=== PATIENT | male | born 1950 | race Asian ===

== ENCOUNTER 2018-12-25 06:24 | Day surgery (SDC) | payer MEDICARE, OTHER ==
[~2018-12-25] VITALS: Ht 165.1 cm; Wt 77.3 kg
[~2018-12-25 06:24] MED LIST: SODIUM CHLORIDE 0.9% 1,000 ML IV ONE
[2018-12-25] MEDS ORDERED: LIDOCAINE 2% 30 ML JELLY TP ONE (06:25)
[2018-12-25] MEDS ORDERED: LIDOCAINE 4% 50 ML SOLUTION TP ONE (06:25)
[2018-12-25] MEDS ORDERED: ALBUTEROL SULFATE 2.5 MG/0.5 ML NEB SOLUTION NEB ONE (06:25)
[2018-12-25] MEDS ORDERED: BENZOCAINE 20% 50 MCG/SPRAY 57 GM TP ONE (06:25)
[2018-12-25] MEDS ORDERED: SODIUM CHLORIDE 0.9% 1,000 ML IV ONE (06:30)
[2018-12-25] MEDS ORDERED: SIMV-261 PO (06:46)
[2018-12-25] MEDS ORDERED: OS500 PO ×2 (06:46→06:52)
[2018-12-25] MEDS ORDERED: LOSA1TAB42 PO (06:52)
[2018-12-25] MEDS ORDERED: ASPI-1182 PO (06:52)
[2018-12-25] MEDS ORDERED: METO50 PO (06:52)
[2018-12-25] MEDS ORDERED: RANI150T7 PO (06:52)
[2018-12-25] MEDS ORDERED: PSEU60TA21 PO (06:52)
[2018-12-25] MEDS ORDERED: HYDR25TA84 PO (06:52)
[2018-12-25] MEDS ORDERED: DUTA.5 PO (06:52)
[2018-12-25] MEDS ORDERED: TAMS-1 PO (06:52)
[2018-12-25] MEDS ORDERED: MIDAZOLAM HCL 2 MG/2 ML VIAL ONE (08:12)
[2018-12-25] MEDS ORDERED: FentaNYL CITRATE-PF 100 MCG/2 ML VIAL ONE (08:12)
[2018-12-25] MEDS ORDERED: MethylPREDNISolone SOD SUCC 125 MG/2 ML VIAL IVP ONE (09:30)
[2018-12-25] MEDS ORDERED: MethylPREDNISolone SOD SUCC 125 MG/2 ML VIAL ONE (09:34)
[2018-12-25] MEDS ORDERED: OXYGEN THERAPY IH SCH (20:00)
== END 2018-12-25 11:15 | disposition home or self-care (01) ==
LOC: SURGERY 06:24
PROVIDERS: ATTEND Internal Medicine Critical Care Medicine
DX: J38.4 Edema of larynx (principal); B37.0 Candidal stomatitis; J45.909 Unspecified asthma, uncomplicated; J84.10 Pulmonary fibrosis, unspecified; F10.21 Alcohol dependence, in remission; E78.00 Pure hypercholesterolemia, unspecified; Z79.899 Other long term (current) drug therapy; Z98.890 Other specified postprocedural states; Z86.11 Personal history of tuberculosis; Z87.891 Personal history of nicotine dependence
CPT/HCPCS: 31623; 31624; 71045; 87015; 87070; 87101; 87205; 87206; 87220; J2250; J2930; J3010; J7030

== ENCOUNTER → 2021-05-06 | Day surgery (SDC) | payer MEDICARE, OTHER ==
[~2021-05-06] VITALS: Ht 167.6 cm; Wt 84.1 kg
[~2021-05-06] MED LIST changes: +ALBUTEROL SULFATE 2.5 MG/0.5 ML NEB SOLUTION NEB ONE; +ASPI-1444 PO; +BENZOCAINE 20% 50 MCG/SPRAY 57 GM TP ONE; +DUTA.5 PO; +FentaNYL CITRATE PF 100 MCG/2 ML VIAL ONE; +HYDR25TA84 PO; +LIDOCAINE 2% 5 ML JELLY TP ONE; +LOSA1TAB42 PO; +METO50 PO; +MIDAZOLAM HCL 5 MG/ML VIAL ONE; +MethylPREDNISolone SOD SUCC 125 MG/2 ML VIAL IVP ONE; +MethylPREDNISolone SOD SUCC 125 MG/2 ML VIAL ONE; +OS500 PO; +OXYGEN THERAPY IH SCH; +PSEU-224 PO; +RANI150T7 PO; +SIMV-261 PO; +SODIUM CHLORIDE 0.9% 0 ML ONE; +TAMS-1 PO
[2021-05-06 06:46] LABS: COVID AG,FIA SOURCE NASOPHARYNGEAL
== END | disposition home or self-care (01) ==
LOC: SURGERY 06:07
PROVIDERS: ATTEND Internal Medicine Critical Care Medicine
DX: J38.4 Edema of larynx (principal); B37.0 Candidal stomatitis; E78.00 Pure hypercholesterolemia, unspecified; I10 Essential (primary) hypertension; Z79.899 Other long term (current) drug therapy; Z87.891 Personal history of nicotine dependence; Z87.01 Personal history of pneumonia (recurrent); Z98.890 Other specified postprocedural states; Z72.89 Other problems related to lifestyle; Z86.11 Personal history of tuberculosis
CPT/HCPCS: 31623; 31624; 71045; 87015; 87070; 87077; 87101; 87186; 87205; 87206; 87220; 87426; 88108; 88184; 88185; 88312; C9803; J2250; J2930; J3010; J7030; J7613

== ENCOUNTER 2022-04-02 05:46 | Day surgery (SDC) | payer MEDICARE, OTHER ==
[~2022-04-02] VITALS: Ht 162.6 cm; Wt 82.7 kg
[~2022-04-02 05:46] MED LIST changes: -ALBUTEROL SULFATE 2.5 MG/0.5 ML NEB SOLUTION NEB ONE; -BENZOCAINE 20% 50 MCG/SPRAY 57 GM TP ONE; -FentaNYL CITRATE PF 100 MCG/2 ML VIAL ONE; -LIDOCAINE 2% 5 ML JELLY TP ONE; -MIDAZOLAM HCL 5 MG/ML VIAL ONE; -MethylPREDNISolone SOD SUCC 125 MG/2 ML VIAL IVP ONE; -MethylPREDNISolone SOD SUCC 125 MG/2 ML VIAL ONE; -OXYGEN THERAPY IH SCH; -SODIUM CHLORIDE 0.9% 0 ML ONE
[2022-04-02] MEDS ORDERED: ALBUTEROL SULFATE 2.5 MG/0.5 ML NEB SOLUTION NEB ONE (05:47)
[2022-04-02] MEDS ORDERED: BENZOCAINE 20% 50 MCG/SPRAY 57 GM TP ONE (05:47)
[2022-04-02] MEDS ORDERED: LIDOCAINE 4% 50 ML SOLUTION TP ONE (05:47)
[2022-04-02] MEDS ORDERED: LIDOCAINE 2% 11 ML JELLY TP ONE (05:47)
[2022-04-02 06:44] LABS: COVID AG,FIA SOURCE NASAL SWAB
[2022-04-02] MEDS ORDERED: SODIUM CHLORIDE 0.9% 1,000 ML ONE (07:00)
[2022-04-02] MEDS ORDERED: MIDAZOLAM HCL 5 MG/ML VIAL ONE (07:59)
[2022-04-02] MEDS ORDERED: FentaNYL CITRATE PF 100 MCG/2 ML VIAL ONE (07:59)
[2022-04-02] MEDS ORDERED: MethylPREDNISolone SOD SUCC 125 MG/2 ML VIAL IVP ONE (09:15)
[2022-04-02] MEDS ORDERED: MethylPREDNISolone SOD SUCC 125 MG/2 ML VIAL ONE (09:31)
[2022-04-02] MEDS ORDERED: OXYGEN THERAPY IH SCH (20:00)
== END 2022-04-02 11:15 | disposition home or self-care (01) ==
LOC: SURGERY 05:46
PROVIDERS: ATTEND Internal Medicine Critical Care Medicine
DX: J38.4 Edema of larynx (principal); B37.0 Candidal stomatitis; I10 Essential (primary) hypertension; E78.00 Pure hypercholesterolemia, unspecified; J45.909 Unspecified asthma, uncomplicated; Z20.822 Contact with and (suspected) exposure to COVID-19; Z87.01 Personal history of pneumonia (recurrent); Z79.82 Long term (current) use of aspirin; Z98.890 Other specified postprocedural states
CPT/HCPCS: 31623; 87101; 87220; 87070; 87186; 31624; 94640; 71045; 87015; 87206; 87426; J3010; J2930; J2250; Q9967; J7030; C9803; J7613; Z7610

== ENCOUNTER 2023-12-07 06:56 | Day surgery (SDC) | payer OTHER ==
[~2023-12-07] VITALS: Ht 170.2 cm; Wt 70.5 kg
[~2023-12-07 06:56] MED LIST changes: +ALBU18HF12 IH; +ALEN70TA80 PO; +ATOR40TA71 PO; +CELE-125 PO; +CETI10TA58 PO; +CHOL500013 PO; -DUTA.5 PO; +FLUT16SP NASAL; +FLUT1BLS15 IH; +GABA-1181 PO; +HYDR10TA31 PO; -HYDR25TA84 PO; +LOSA-382 PO; -LOSA1TAB42 PO; +METO25 PO; -METO50 PO; +MONT-40 PO; +PROP10DR4 OU; -PSEU-224 PO; -RANI150T7 PO; +SENN-277 PO; -SIMV-261 PO; -SODIUM CHLORIDE 0.9% 1,000 ML IV ONE; +SODIUM CHLORIDE 0.9% 1,000 ML ONE
[2023-12-07] MEDS ORDERED: LIDOCAINE 2% 11 ML JELLY TP ONE (06:57)
[2023-12-07] MEDS ORDERED: ALBUTEROL SULFATE 2.5 MG/0.5 ML NEB SOLUTION NEB ONE (06:57)
[2023-12-07] MEDS ORDERED: LIDOCAINE 4% 50 ML SOLUTION TP ONE (06:57)
[2023-12-07] MEDS ORDERED: BENZOCAINE 20% 50 MCG/SPRAY 57 GM TP ONE (06:57)
[2023-12-07] MEDS ORDERED: MIDAZOLAM HCL 2 MG/2 ML VIAL ONE (07:51)
[2023-12-07] MEDS ORDERED: FentaNYL CITRATE PF 100 MCG/2 ML VIAL ONE (07:52)
[2023-12-07] MEDS: SODIUM CHLORIDE 0.9% 1,000 ML IV ONE (08:19)
[2023-12-07] MEDS ORDERED: MethylPREDNISolone SOD SUCC 125 MG/2 ML VIAL ONE (10:21)
[2023-12-07] MEDS: MethylPREDNISolone SOD SUCC 125 MG/2 ML VIAL IVP ONE (10:23)
== END 2023-12-07 13:10 | disposition home or self-care (01) ==
LOC: SURGERY 06:56
PROVIDERS: ATTEND Internal Medicine Critical Care Medicine
DX: R05.3 Chronic cough (principal); J38.4 Edema of larynx; B37.0 Candidal stomatitis; J84.10 Pulmonary fibrosis, unspecified; J98.8 Other specified respiratory disorders; J98.09 Other diseases of bronchus, not elsewhere classified; R91.8 Other nonspecific abnormal finding of lung field; I11.9 Hypertensive heart disease without heart failure; J45.909 Unspecified asthma, uncomplicated; Z85.21 Personal history of malignant neoplasm of larynx; Z87.891 Personal history of nicotine dependence; Z79.899 Other long term (current) drug therapy
CPT/HCPCS: 31623; 87206; 87101; 87220; 87070; 88108; 31624; 94640; 71045; 87015; J3010; J2250; J2919; Q9967; J7030; J7613; Z7610